=== PATIENT | female | born 1965 | race Caucasian/White ===

== ENCOUNTER → 2016-10-09 | Outpatient (CLI) | payer MEDICAID | LOC: BRMIMAGING 13:47 | PROVIDERS: ATTEND Registered Nurse | DX: E61.8 Deficiency of other specified nutrient elements (principal) ==

== ENCOUNTER → 2017-02-02 | Outpatient (CLI) | payer MEDICAID | LOC: CIMAGING 08:00 | PROVIDERS: ATTEND Registered Nurse | DX: K76.9 Liver disease, unspecified (principal); N28.1 Cyst of kidney, acquired | CPT/HCPCS: 76700-PO; 76856-PO ==